=== PATIENT | male | born 1950 | race Caucasian/White ===

== ENCOUNTER 2018-11-30 12:37 | Observation (INO) ==
[~2018-11-30 12:37] MED LIST: Bupivacaine Liposomal PF 1.3% Inj 20 ML Vial ONE; Gelatin Size 100 Topical Foam ONE; Thrombin Topical Soln 5,000 UNIT Vial TOPICAL ONE; methylPREDNISolone acetate 40 MG/ML VIAL ONE
[2018-11-30] MEDS ORDERED: Metoprolol Tartrate 25 MG Tablet PO ONE (13:08)
[2018-11-30] MEDS ORDERED: Chlorhexidine Gluconate 2% 1 Pack (2 Cloths) TOPICAL ONE (13:08)
[2018-11-30 13:39] LABS: INR 1.1 Ratio; Prothrombin Time 10.8 sec (9.8-11.6)
[2018-11-30] MEDS ORDERED: Sodium Chlor 0.9% Inj 500 ML IV.SIG SCH (14:00)
[2018-11-30] MEDS ORDERED: fentaNYL Citrate Inj 100 MCG/2 ML Ampul ONE ×2 (18:57→18:58)
[2018-11-30] MEDS ORDERED: Bupivacaine Liposomal PF 1.3% Inj 20 ML Vial INFILTRATN ONE (19:18)
[2018-11-30] MEDS ORDERED: Bisacodyl 10 MG Supp RECTAL PRN (19:32)
[2018-11-30] MEDS ORDERED: Acetaminophen 325 MG Tablet PO PRN (19:32)
[2018-11-30] MEDS ORDERED: Morphine Inj 4 MG/ML Vial IV.PUSH PRN (19:32)
[2018-11-30] MEDS ORDERED: Dextrose 50% in Water 50 ML Vial IV.PUSH PRN (19:38)
--- NOTE | 2018-11-30 19:42 | P.OP ---
Preoperative Diagnosis: L4-5 disk herniation Postoperative Diagnosis: L4-5 disk herniation Date of procedure: 11/30/18 Procedure: Left L4-5 hemilaminectomy, mesiofacetectomy, foraminotomy, microsurgical resection of the disk Anesthesia: MADISYN Surgeon: Adebayo Pantoja MD Surplus Property Disposal Agent: Haseeb Pathology: none sent Operation and Findings: INDICATIONS FOR THE SURGICAL PROCEDURE Mr Toussaint is a 68 year-old male who presented with intractable mechanical back pain and clinical evidence of left L5 lower extremity radiculopathy. He was found to have a large disk herniation causing significant stenosis with significant mass effect on the neural structures which correlated with his clinical symptoms. She was unable to ambulate. He failed nonsurgical management. A surgical decompression were indicated as a last resort. The [id number] details of the procedure, indications, alternatives, risks and potential complications were fully discussed with the patient. The patient fully understood. All the questions were answered. No guarantees were given. The patient voiced requesting the procedure and signed informed consents. The patient was offered the alternative of delaying the procedure and continuing with nonsurgical management. DETAILS OF THE SURGICAL PROCEDURE After the induction of general anesthesia, endotracheal intubation was performed. A Montilla catheter, bilateral LUX hose and sequential compression devices were placed and kept throughout the procedure. The patient was positioned prone on a Horacio table over a Roly frame. All pressure points were carefully padded with eggcrate mattress. The eyes were tapped shut after ointment was applied by the anesthesiologist to prevent corneal abrasion. A Jose hugger was placed over the exposed lower body to maintain control of the core body temperature. The lower lumbar region was prepped and draped in the usual sterile fashion. A spinal needle was placed for localization and an x- ray performed with a C-arm. A skin incision was made in the midline over the spinous processes L4-5 with a # 10 blade. Small subcutaneous bleeders were controlled with a bipolar and the dissection was carried out through the lumbar fascia exposing the spinous processes. A subperiosteal dissection was performed with a Padilla elevator and a Bovie over the L4-5 spinous process lamina and facets. A microdiscectomy self- retaining retractor was placed on the incision and an x-ray was obtained with an instrument placed underneath the lamina. At this point in the procedure the operating microscope was draped in the usual sterile fashion and brought to the field. The rest of the surgical procedure was performed using microsurgical dissection technique with exception of the closure. Once the level was confirmed, a decompressive laminectomy was performed at L4-5 on the left side using the TPS drill with a 4mm drill bit. A medial facetectomy was performed and the superior free border of the ligamentum flavum was dissected with a ligament dissector and removed with a thin footplate 2 mm Kerrison The medial facetectomy allowed me to expose the L5 nerve root, which was identified and followed towards its exit in the foramen. Epidural veins located laterally to the dural sac were coagulated with a bipolar and incised with microscissors. Gentle medial retraction of the dural sac allowed inspection of the disc space. The patient had a disc herniation with an extrusion, causing mass effect over the exiting nerve root. The annulus fibrosus of the disc was coagulated with the bipolar and incised with an 11 blade. The extruded disc was carefully dissected from the surrounding tissue and removed with pituitary forceps. Then, a microdiscectomy was carried out in the standard fashion using straight and up-biting pituitary forceps. A good decompression of the dural sac and nerve root was achieved. The exit of the nerve root was inspected for residual disc fragments and hemostasis was secured with the bipolar. The incision was irrigated with a large amount of saline solution. A Valsalva maneuver failed to show any cerebrospinal fluid leak or bleeding. The decompression was assessed again and found to be satisfactory. The incision was then closed in layers. The fascia was closed with 0 Vicryl sutures in an interrupted fashion. The superficial fascia was closed with 0 Vicryl sutures. The fascia was infiltrated with 0.5% Marcaine with epinephrine 1:100,000 dilution. The subcutaneous tissue was irrigated then closed with 0 Vicryl and 3 -0 Vicryl. The skin was closed with 4-0 running subcuticular Vicryl. Dermabond was applied to the skin. A sterile dressing was applied. At the end of the procedure, the sponge, needle and instrument counts were all correct. Estimated blood loss was less than 50 cc. No blood transfusion was given. No intraoperative complications occurred. The patient received prophylactic antibiotics. The patient was then extubated and transferred to the recovery room in stable condition.
[2018-11-30] MEDS ORDERED: *morphine SULFATE 4 MG/ML PERIprocedure ONLY ONE (19:57)
--- NOTE | 2018-11-30 20:43 | XR ---
EXAM DATE: 11/30/2018 8:39 PM EST AGE/SEX: 68 years / Male INDICATIONS: L4-5 Laminectomy. Level localization. CLINICAL DATA: This is the patient's initial encounter. Patient reports that signs and symptoms have been present for 1 day and indicates a pain score of Nonresponsive. MEDICAL/SURGICAL HISTORY: Non-responsive. Non-responsive. COMPARISON: No prior exams available for comparison. FINDINGS: Single lateral view in the operating room coned down over the lumbosacral junction shows soft tissue retractors and a metallic pointer. The pointer is at the L4/L5 level. CONCLUSION: Pointer at L4/L5. Electronically signed by: Rodriguez Cuevas MD Board Certified Radiologist 11/30/2018 8:42 PM EST
[2018-12-01] MEDS ORDERED: Insulin NovoLOG Aspart Correctional Sugar Inj SQ SCH
[2018-12-01] MEDS: Senna/Docusate Sodium 8.6/50 MG Tablet PO SCH ×2 (00:10→09:17)
[2018-12-01] MEDS ORDERED: Vancomycin Inj 1,000 MG in Sodium Chlor 0.9% Inj 250 ML IV.SIG SCH (06:00)
[2018-12-01] MEDS ORDERED: Fenofibrate 145 MG Tablet PO SCH (09:00)
--- NOTE | 2018-12-01 10:28 | P.DCO ---
- Physical Therapy Order: Improve ambulation - Home Health Nursing Order: Medical education, Signs/symptoms of disease process, Wound care and dressing changes (keep optifoam dressing on, can be removed 7 days postop. pt may shower only. ), Nursing assessment with vital signs - Case Management Consult Case Management Consult-Home Health: Yes - Certification I have seen patient Ramses Toussaint on 12/01/18. My clinical findings support the need for the requested home health care services because: Deconditioned with increased weakness, High risk of falls I certify that my clinical findings support that this patient is homebound because: Post-op weakness
--- NOTE | 2018-12-01 10:39 | P.DS ---
Date of admission: 11/30/18 19:32 Primary care physician: Keesha Mera Brief History from admission: Mr Toussaint is a 68 year-old male who presented with intractable mechanical back pain and clinical evidence of left L5 lower extremity radiculopathy. He was found to have a large disk herniation causing significant stenosis with significant mass effect on the neural structures which correlated with his clinical symptoms. She was unable to ambulate. He failed nonsurgical management. A surgical decompression were indicated as a last resort. DS: Medications - Discharge Medications Prescriptions: hydrocodone-acetaminophen 1 tab PO Q4-6H PRN 7 Days #30 tab PRN Reason: Pain Scale 6 To 10 DS: Summary Hospital Course: Mr. Toussaint underwent a Left L4-5 hemilaminectomy, mesiofacetectomy, foraminotomy, microsurgical resection of the disk on 11/30/18. His surgery went well without complications. He was discharged home in stable conditions. Wound care and activity restrictions were discussed. - Time Spent with Patient Total time spent providing and/or coordinating discharge services: Less than 30 minutes - Quality: VTE Deep Vein Thrombosis/Pulmonary Embolism Present on Admission: No Exam Vital signs: Vital Signs 11/30/18 13:41 11/30/18 17:11 11/30/18 19:45 Temperature 99.2 F 98.7 F Pulse Rate 64 64 Respiratory Rate 20 18 Blood Pressure 130/76 138/68 Pulse Oximetry 97 96 98 11/30/18 19:55 11/30/18 20:00 11/30/18 20:15 Temperature Pulse Rate 70 69 64 Respiratory Rate 11 L 20 10 L Blood Pressure 125/61 112/55 L Pulse Oximetry 94 L 95 95 11/30/18 20:30 11/30/18 20:45 11/30/18 21:50 Temperature 97.5 F L Pulse Rate 64 60 Respiratory Rate 18 18 Blood Pressure 111/57 L 118/57 L Pulse Oximetry 95 94 L 95 11/30/18 23:45 12/01/18 04:40 12/01/18 08:33 Temperature 97.7 F 97.6 F 98.0 F Pulse Rate 66 66 59 L Respiratory Rate 17 18 18 Blood Pressure 103/51 L 123/56 L 121/57 L Pulse Oximetry 95 95 91 L Intake & Output 11/30/18 12/01/18 12/01/18 18:59 06:59 18:59 Intake Total 2039 250 / 250 Output Total Balance 2009 250 / 250 Weight 104.5 kg 107.2 kg Intake: IV 250 / 250 Vancomycin Inj 1,000 MG In NS 250 / 250 Inj 250 ML @ 250 mls/hr IV.SIG Q12H MARITZA Rx#:[id number] Oral 540 / 540 Anesthesia Amount 1500 / 1500 Output: Estimated Blood Loss Other: # Voids 1 Date of Last Bowel Movement 11/29/18 Weight On Admission 104.5 kg Results Procedures completed during hospitalization: Left L4-5 hemilaminectomy, mesiofacetectomy, foraminotomy, microsurgical resection of the disk Labs on day of discharge: Labs from last 24 hours 12/01/18 12/01/18 11/30/18 06:11 00:02 20:12 PT INR POC Glucose 198 H 195 H 118 H 11/30/18 13:08 PT 10.8 INR 1.1 POC Glucose - Impressions ITS Impressions Lumbar Spine X-Ray 11/30/18 00:00 CONCLUSION: Pointer at L4/L5. Discharge Plan - Discharge Disposition Patient Disposition: Disch W/Home Health Service - Discharge Condition Condition: Serious - Discharge Order Discharge Orders: Discharge Order (Routine); Ordered 12/01/18 Ordered By: Marcelle Victoria - Physicians Team Primary Care Provider: Keesha Mera Attending Provider: Adebayo Pantoja - Rxs /Orders / Referrals /Forms Prescriptions: New Cyanocobalamin (Vitamin B-12) [Cyanocobalamin (Vitamin B-12)] 2,500 mcg PO DAILY enalapril maleate 2.5 mg Tablet 2.5 mg PO DAILY RF: 0 hydrocodone-acetaminophen 10-325 mg Tablet 1 tab PO Q4-6H PRN (Reason: Pain Scale 6 To 10) 7 Days Qty: 30 RF: 0 vancomycin 1,000 mg Recon Soln 1,000 mg IV Q12H RF: 0 Continue aspirin [Adult Low Dose Aspirin] 81 mg Tablet,Delayed Release (Dr/Ec) 81 mg PO DAILY cyanocobalamin (vitamin B-12) 2,500 mcg Tablet,Chewable 2,500 mcg PO DAILY cyanocobalamin (vitamin B-12) 1,000 mcg/mL Kit 100 mcg IM QMONTH dulaglutide [Trulicity] 1.5 mg/0.5 mL Pen Injector 1.5 mg SUBCUT QWEEK enalapril maleate 2.5 mg Tablet 2.5 mg PO DAILY enoxaparin [Lovenox] 80 mg/0.8 mL Syringe mg SUBCUT DAILY fenofibrate nanocrystallized 145 mg Tablet 145 mg PO DAILY metformin 1,000 mg Tablet 1,000 mg PO BID warfarin 5 mg Tablet 5 mg PO DAILY Referrals: Keesha Mera MD [Primary Care Provider] - See Instructions - Discharge Instructions Patient Printed Instructions: Hydrocodone/Acetaminophen (By mouth), Laminectomy (DC), Lumbar Brace (DC) Additional Instructions: Full weight bearing Out of bed with Lumbar brace Prescription for Hyddrocodone - Post Discharge Care Plan Care Plan Goals: Your Health Problems: Goals to Promote Your Health: * To prevent worsening of your condition * To maintain your health at the optimal level Directions to Meet Your Goals: * Take your medications as prescribed * Follow your dietary instruction * Follow activity as directed * Keep your appointments as scheduled * Take your immunizations and boosters as scheduled * If your symptoms worsen call your PCP * If no PCP go to Urgent Care or Emergency Room Smoking is dangerous to your health. Avoid second hand smoke. You may reach the 24-hour crisis hotline for domestic abuse at .
[2018-12-01 12:19] VITALS: BP 129/68; PULSE 66; RESP 17; TEMP 97.7; O2SAT 93
== END 2018-12-01 14:15 | disposition home health service (06) ==
LOC: HSDI 12:37 → HSDC 12:37 → N06 20:57
PROVIDERS: ADMIT Neurological Surgery; ATTEND Neurological Surgery
DX: Z87.891 Personal history of nicotine dependence; Z79.01 Long term (current) use of anticoagulants; Z79.82 Long term (current) use of aspirin; M51.16 Intervertebral disc disorders with radiculopathy, lumbar region; J44.9 Chronic obstructive pulmonary disease, unspecified; Z79.84 Long term (current) use of oral hypoglycemic drugs; E11.9 Type 2 diabetes mellitus without complications; I10 Essential (primary) hypertension
CPT/HCPCS: 72020; 76000; 82948; 82962; 85610; 94150; 96365; 97163; C9290; G0378; G8987; G8988; J0131; J1030; J1580; J2250; J2270; J3010; J3370; J7050; J7120; K0636; L0627